=== PATIENT | male | born 1945 | race Caucasian/White ===

== ENCOUNTER 2022-01-23 13:18 | Inpatient (IN) | payer MEDICARE, OTHER ==
[2022-01-23] MEDS ORDERED: Aspirin 325 MG TAB ONE (13:28)
[2022-01-23] MEDS ORDERED: Nitroglycerin 50 MG/250 ML BOT 250 ML ONE ×2 (13:28→13:35)
[2022-01-23] MEDS ORDERED: Heparin 25,000 units/D5W 500 ML ONE (13:28)
[2022-01-23] MEDS ORDERED: Heparin 10,000 UNITS/ 10 ML VIAL ONE (13:35)
[2022-01-23] MEDS ORDERED: Lidocaine 1% PF 5 ML VIAL ONE (13:36)
[2022-01-23] MEDS ORDERED: Heparin 5,000 UNITS/ML VIAL ONE (13:37)
[2022-01-23] MEDS ORDERED: Fentanyl 100 MCG/2 ML VIAL ONE (13:37)
[2022-01-23 13:38] LABS: Actual Bicarbonate (HCO3v) 21 mEq/L (22-28); Calcium, Ionized (venous) 1.18 mmol/L (1.16-1.32); Chloride (VBG) 99 mmol/L (98-106); Hemoglobin (Hb) 16.7 g/dL (12.6-17.4); Potassium (VBG) 3.76 mmol/L (3.70-5.30); Puncture Site Other Site; Sodium 137.4 mmol/L (133-146); pH (venous) 7.37 (7.32-7.43)
[2022-01-23] MEDS ORDERED: Midazolam HCl 2 mg/2 ml Vial ONE ×2 (13:38→14:16)
[2022-01-23 13:48] LABS: #Monocytes 0.6 10x3/uL (0.0-1.1); #Neutrophils 8.3 10x3/uL (1.5-8.4); %Basophils 0.3 % (0.0-2.0); %Lymphocytes 21.7 % (18.0-47.0); %Monocytes 5.5 % (0.0-10.0); %Neutrophils 72.2 % (40.0-75.0); Hemoglobin 15.8 g/dL (13.5-17.5); Mean Corpuscular HGB CONC 34.7 g/dL (32.0-36.0); Mean Corpuscular Hemoglobin 31.7 pg (27.0-33.0); Mean Corpuscular Volume 91.2 fl (81.2-95.1); Mean Platelet Volume 9.5 fl (7.4-10.4); Platelet Count 325 10x3/uL (150-450); RBC Distribution Width 12.5 % (11.5-14.5); Red Blood Cell (RBC) Count 4.99 10x6/uL (4.32-5.72); White Blood Cell (WBC) Count 11.5 10x3/uL (3.5-10.5)
[2022-01-23 13:54] LABS: INR-International Normal Ratio 0.9; PTT 26.4 sec (22.0-33.0); Prothrombin Time 10.3 sec (9.5-12.1)
[2022-01-23 14:01] LABS: ALT (SGPT) 25 U/L (8-55); AST (SGOT) 81 U/L (5-34); Albumin 4.8 g/dL (3.4-4.8); Alkaline Phosphatase 49 U/L (40-110); Anion Gap 20 mmol/L (10-20); BUN (Urea Nitrogen) 13 mg/dL (8.4-25.7); Bilirubin, Total 1.7 mg/dL (0.2-1.2); CK (CPK) 1050 U/L (30-200); Calc. Creatinine Clearance 0 mL/min (70-130); Calcium 10.5 mg/dL (7.8-10.44); Carbon Dioxide 23 mmol/L (23-31); Chloride 98 mmol/L (98-107); Globulin 3.4 g/dL (2.4-3.5); Glucose 159 mg/dL (83-110); Lipase 6 U/L (8-78); Potassium 3.5 mmol/L (3.5-5.1); Protein, Total 8.2 g/dL (5.8-8.1); Sodium 137 mmol/L (136-145)
[2022-01-23] MEDS ORDERED: Atropine Sulfate 0.4 mg/1 ml Vial ONE ×2 (14:16→14:27)
[2022-01-23] MEDS ORDERED: Ondansetron PF 4 MG/2 ML Vial ONE (14:36)
[2022-01-23] MEDS ORDERED: TICAGRELOR 90 MG TABLET ONE (15:10)
[2022-01-23 15:14] LABS: SARS-CoV-2 NAA Rapid Test Not Detected (NotDetected)
[2022-01-23] MEDS ORDERED: niCARdipine 25 MG/10 ML VIAL ONE ×2 (15:21→15:23)
[2022-01-23] MEDS ORDERED: Nitroglycerin 0.4 MG TAB (25 Tab Bottle) SL PRN (16:49)
[2022-01-23] MEDS ORDERED: HYDROcodone/Acetaminophen 5/325 mg Tablet PO PRN ×2 (16:56)
[2022-01-23] MEDS ORDERED: Sodium Chloride 0.9% 1,000 ML IV SCH (17:00)
[2022-01-23 18:26] LABS: Troponin I 119.428 ng/mL (< 0.028)
[2022-01-23] MEDS ORDERED: Atorvastatin Calcium 40 MG TAB PO SCH (21:00)
[2022-01-23] MEDS ORDERED: tiZANidine HCl 4 MG TAB PO SCH (21:30)
[2022-01-23] MEDS ORDERED: Midodrine HCl 2.5 MG TAB PO PRN (23:58)
[2022-01-24 04:26] LABS: #Monocytes 0.9 10x3/uL (0.0-1.1); #Neutrophils 5.5 10x3/uL (1.5-8.4); %Basophils 0.4 % (0.0-2.0); %Eosinophils 0.1 % (0.0-6.0); %Lymphocytes 20.5 % (18.0-47.0); %Monocytes 10.7 % (0.0-10.0); %Neutrophils 67.8 % (40.0-75.0); Hemoglobin 13.5 g/dL (13.5-17.5); Mean Corpuscular HGB CONC 34.6 g/dL (32.0-36.0); Mean Corpuscular Volume 92.4 fl (81.2-95.1); Mean Platelet Volume 9.5 fl (7.4-10.4); Platelet Count 242 10x3/uL (150-450); Red Blood Cell (RBC) Count 4.22 10x6/uL (4.32-5.72); White Blood Cell (WBC) Count 8.1 10x3/uL (3.5-10.5)
[2022-01-24 04:58] LABS: ALT (SGPT) 44 U/L (8-55); AST (SGOT) 207 U/L (5-34); Albumin 3.7 g/dL (3.4-4.8); Alkaline Phosphatase 42 U/L (40-110); Anion Gap 14 mmol/L (10-20); BUN (Urea Nitrogen) 12 mg/dL (8.4-25.7); Bilirubin, Total 2.5 mg/dL (0.2-1.2); Calc. Creatinine Clearance 88 mL/min (70-130); Calcium 9.2 mg/dL (7.8-10.44); Carbon Dioxide 24 mmol/L (23-31); Cardiac Risk 3.9 (Less than 4.5); Chloride 105 mmol/L (98-107); Cholesterol 168 mg/dl (< 200 Desired); Globulin 2.6 g/dL (2.4-3.5); Glucose 110 mg/dL (83-110); HDL Cholesterol 43 mg/dL (>60 Neg Risk); LDL Cholesterol, Calculated 102 mg/dL; Potassium 4.2 mmol/L (3.5-5.1); Protein, Total 6.3 g/dL (5.8-8.1); Sodium 139 mmol/L (136-145); Triglycerides 116 mg/dL (Less than 150)
[2022-01-24 06:13] VITALS: BMI 28.3
[2022-01-24 08:02] LABS: CKMB 242.7 ng/mL (0-6.6); Troponin I 90.929 ng/mL (< 0.028)
[2022-01-24] MEDS ORDERED: Aspirin 81 mg Enteric Coated Tablet PO SCH (09:00)
[2022-01-24 12:38] LABS: Hemoglobin A1c 5.7 % (4.0-6.0)
== END 2022-01-24 16:20 | disposition short-term general hospital (02) | DRG 247 ==
LOC: CSHERS 13:18 → CSHIMCU 16:35
PROVIDERS: ADMIT Specialist; ATTEND Specialist
PROC: 027034Z Dilation of Coronary Artery, One Artery with Drug-eluting Intraluminal Device, Percutaneous Approach (ICD-10-PCS; principal; 2022-01-23)
PROC: 02703ZZ Dilation of Coronary Artery, One Artery, Percutaneous Approach (ICD-10-PCS; 2022-01-23)
PROC: 4A023N7 Measurement of Cardiac Sampling and Pressure, Left Heart, Percutaneous Approach (ICD-10-PCS; 2022-01-23)
PROC: B2111ZZ Fluoroscopy of Multiple Coronary Arteries using Low Osmolar Contrast (ICD-10-PCS; 2022-01-23)
PROC: B2151ZZ Fluoroscopy of Left Heart using Low Osmolar Contrast (ICD-10-PCS; 2022-01-23)
PROC: B240ZZ3 Ultrasonography of Single Coronary Artery, Intravascular (ICD-10-PCS; 2022-01-23)
DX: I21.19 ST elevation (STEMI) myocardial infarction involving other coronary artery of inferior wall (principal); I50.30 Unspecified diastolic (congestive) heart failure; G89.29 Other chronic pain; M54.9 Dorsalgia, unspecified; I25.10 Atherosclerotic heart disease of native coronary artery without angina pectoris; I11.0 Hypertensive heart disease with heart failure; Z20.822 Contact with and (suspected) exposure to COVID-19; N40.0 Benign prostatic hyperplasia without lower urinary tract symptoms; Z98.890 Other specified postprocedural states
CPT/HCPCS: 36415; 71045; 80053; 80061; 82550; 82553; 82805; 83036; 83690; 84443; 84484; 85025; 85347; 85610; 85730; 92921; 92941; 92978; 92979; 93005; 93010; 93458; 96365; 96375; 96376; 99152; 99153; C1725; C1753; C1769; C1874; C1887; C9606; J0461; J1644; J2250; J2405; J3010; J7050; U0002

== ENCOUNTER 2022-12-31 10:20 | Outpatient (CLI) | payer OTHER | END 2022-12-31 10:21 | disposition home or self-care (01) | LOC: CSHULT 10:20 | PROVIDERS: ATTEND Family Medicine | DX: E04.1 Nontoxic single thyroid nodule (principal) | CPT/HCPCS: 76536 ==

== ENCOUNTER 2023-03-31 08:28 | Day surgery (SDC) | payer OTHER ==
[2023-03-26 08:42] VITALS: BMI 27.3
[2023-03-31] MEDS ORDERED: Lidocaine 1% w/Epinephrine 1:100K 30 ML VIAL ONE (11:06)
[2023-03-31] MEDS ORDERED: CEFAZOLIN 2 GM VIAL ONE (11:07)
[2023-03-31] MEDS ORDERED: Rocuronium Bromide 10 MG/ML (10ML VIAL) ONE (11:09)
[2023-03-31] MEDS ORDERED: Dexamethasone 4 mg/ml Vial ONE (11:09)
[2023-03-31] MEDS ORDERED: PROPOFOL 20 ML ONE (11:09)
[2023-03-31] MEDS ORDERED: fentaNYL 50 mcg/mL 1 mL Vial ONE ×3 (11:09→13:47)
[2023-03-31] MEDS ORDERED: Midazolam HCl 2 mg/2 ml Vial ONE ×2 (11:09→11:49)
[2023-03-31] MEDS ORDERED: Ondansetron PF 4 MG/2 ML Vial ONE (11:09)
[2023-03-31] MEDS ORDERED: Glycopyrrolate 0.2 MG/ML 5 ML SYRINGE ONE (11:09)
[2023-03-31] MEDS ORDERED: Lidocaine 1% PF 5 ML VIAL ONE (11:10)
[2023-03-31] MEDS ORDERED: Hydrocodone-Acetamin 15 ML UDCUP ONE (14:14)
== END 2023-03-31 15:05 | disposition home or self-care (01) ==
LOC: CSHSDC 08:28
PROVIDERS: ATTEND Otolaryngology Plastic Surgery within the Head & Neck
PROC: 0GBP0ZZ Excision of Left Inferior Parathyroid Gland, Open Approach (ICD-10-PCS; principal; 2023-03-31)
DX: D35.1 Benign neoplasm of parathyroid gland (principal); E21.3 Hyperparathyroidism, unspecified; R49.0 Dysphonia; I25.2 Old myocardial infarction; Z96.642 Presence of left artificial hip joint
CPT/HCPCS: 60500; 83970; J3010; 36415; 88305; 88331; J1100; J2250; J2405; J2704